=== PATIENT | male | born 1990 | race African-American/Black ===

== ENCOUNTER 2017-03-04 22:05 | Emergency (ER) | payer OTHER ==
[~2017-03-04] VITALS: Ht 165.1 cm; Wt 104.4 kg
[2017-03-05] MEDS ORDERED: PREDNISONE20 MG PO (00:08)
[2017-03-05 00:41] VITALS: BP 122/65
== END 2017-03-05 00:42 | disposition home or self-care (01) ==
LOC: EME → EDBD 22:05 → EME 03-05 00:42
DX: J06.9 Acute upper respiratory infection, unspecified (principal); J45.909 Unspecified asthma, uncomplicated; F17.200 Nicotine dependence, unspecified, uncomplicated
CPT/HCPCS: 71020; J1100; J7512; J7644

== ENCOUNTER 2017-05-16 14:24 | Emergency (ER) | payer OTHER ==
[~2017-05-16] VITALS: Ht 165.1 cm; Wt 109.0 kg
[~2017-05-16 14:24] MED LIST: PREDNISONE20 MG PO
[2017-05-16 16:33] LABS: MONOSPOT (MONONUCLEOSIS SEROL) NEGATIVE
[2017-05-16] MEDS ORDERED: PREDNISONE20 MG PO (17:04)
[2017-05-16] MEDS ORDERED: FLONASE16 G1 BOTH NARES (17:04)
[2017-05-16 17:50] VITALS: BP 129/69
== END 2017-05-16 17:53 | disposition home or self-care (01) ==
LOC: EME 14:24
PROVIDERS: Nurse Practitioner Family
DX: J02.8 Acute pharyngitis due to other specified organisms (principal); J45.909 Unspecified asthma, uncomplicated; F17.200 Nicotine dependence, unspecified, uncomplicated
CPT/HCPCS: 86308; 87651 90; 94640; 99281; 99285; J1100